=== PATIENT | male | born 1980 | race Caucasian/White ===

== ENCOUNTER 2018-08-06 08:32 | Emergency (ER) | payer MEDICAID ==
[~2018-08-06] VITALS: Ht 193 cm; Wt 100.0 kg
[2018-08-06 08:47] VITALS: BP 134/67
[2018-08-06] MEDS ORDERED: iohexol 300mg/ml 100ml inj. ONE (10:16)
== END 2018-08-06 10:58 ==
LOC: ER 08:33
DX: M54.2 Cervicalgia (principal); Z02.89 Encounter for other administrative examinations; F12.90 Cannabis use, unspecified, uncomplicated; F15.90 Other stimulant use, unspecified, uncomplicated; F17.200 Nicotine dependence, unspecified, uncomplicated; V89.2XXA Person injured in unspecified motor-vehicle accident, traffic, initial encounter; Y93.89 Activity, other specified; Y92.488 Other paved roadways as the place of occurrence of the external cause; Y99.8 Other external cause status
CPT/HCPCS: 72050; 74177; 99284; Q9967